=== PATIENT | male | born 1985 | race Caucasian/White ===

== ENCOUNTER 2016-08-20 14:12 | Emergency (ER) | payer SELFPAY | END 2016-08-20 17:55 | disposition home or self-care (01) | LOC: ER 14:12 | DX: K80.80 Other cholelithiasis without obstruction (principal); F17.210 Nicotine dependence, cigarettes, uncomplicated | CPT/HCPCS: 36415; 74022; 76705; 80053; 81001; 83690; 85025; 86677 ==